=== PATIENT | male | born 1935 ===

== ENCOUNTER 2018-12-27 06:47 | Inpatient (IN) | payer MEDICARE, BC ==
[2018-12-27] VITALS (13 sets, daily range): BP systolic 123–163; BP diastolic 52–70
[~2018-12-27] VITALS: Ht 172.7 cm; Wt 83.9 kg
[2018-12-27] MEDS ORDERED: ceFAZolin sod 1 GM in NS 55 ML IVPB ONE (07:00)
[2018-12-27] MEDS ORDERED: FLOMAX0.4 MG ORAL (07:31)
[2018-12-27] MEDS ORDERED: METFORMIN HCL500 M1 ORAL (07:32)
[2018-12-27] MEDS ORDERED: BP MED PO (07:43)
--- NOTE | 2018-12-27 08:34 | Anethesia Preoperative Eval ---
Anesthesia Pre-op PMH/ROS General Date of Evaluation: Dec 27, 2018 Time of Evaluation: 08:33 Anesthesiologist: Lacey Valera CRNA ASA Score: ASA 3 Mallampati Score Class I : Soft palate, uvula, fauces, pillars visible Class II: Soft palate, uvula, fauces visible Class III: Soft palate, base of uvula visible Class IV: Only hard plate visible Mallampati Classification: Class II Surgeon: Zeeshan Diagnosis: BPH Surgical Procedure: TURP Anesthesia History: none Family History: no anesthesia problems Allergies: Coded Allergies: No Known Allergies (Unverified , 12/27/18) Medications: see eMAR Patient NPO?: No NPO Date: Dec 26, 2018 NPO Time: 1999 Past Medical History Cardiovascular: Reports: HTN; Denies: CAD, SD, valve dz, arrhythmia, other Pulmonary: Denies: asthma, COPD, DAYANA, other Gastrointestinal/Genitourinary: Reports: GERD, other - BPH; Denies: CRI, ESRD Neurologic/Psychiatric: Denies: dementia, CVA, depression/anxiety, TIA, other Endocrine: Reports: DM; Denies: hypothyroidism, steroids, other HEENT: Denies: cataract (L), cataract (R), glaucoma, PAIMIUT (L), PAIMIUT (R), other Hematology/Immune: Denies: anemia, DVT, bleeding disorder, other Musculoskeletal/Integumentary: Denies: OA, RA, DJD, DDD, edema, other PMH Narrative: as noted above PSxH Narrative: see H & P Anesthesia Pre-op Phys. Exam Physician Exam Last Vital Signs Date Time Temp Pulse Resp B/P (MAP) Pulse Ox O2 Delivery O2 Flow Rate FiO2 12/27/18 07:50 Room Air 12/27/18 07:29 97.9 70 18 156/69 (98) 97 Constitutional: NAD Cardiovascular: RRR Respiratory: CTA Gastrointestinal: S/NT/ND Airway Exam Mallampati Score: Class II MO: full ROM: full Teeth: intact Dentures: no upper, no lower Anesthesia Pre-op A/P Risk Assessment & Plan Assessment: ASA 3 ok to proceed Plan: GA Status Change Before Surgery: No Pre-Antibiotics Given Within 1 Hr of Incision: Lacey Florez CRNA Dec 27, 2018 08:34
[2018-12-27] MEDS ORDERED: NS Irrig 4000ml IRRIG ONE (09:30)
[2018-12-27] MEDS ORDERED: LR 1000ml ONE (09:30)
[2018-12-27] MEDS ORDERED: Succinylcholine 20mg/ml 10ml vial ONE (09:36)
[2018-12-27] MEDS ORDERED: cefOXitin 1gm Inj ONE (09:36)
[2018-12-27] MEDS ORDERED: fentaNYL 100 mcg/2 mL IV ONE (09:37)
[2018-12-27] MEDS ORDERED: Lidocaine 1% MPF 10mg/ml 5ml ONE (09:38)
[2018-12-27] MEDS ORDERED: Propofol 200mg/20ml IV ONE (09:38)
--- NOTE | 2018-12-27 09:38 | Pre-Procedure Note/Attestation ---
Pre-Procedure Note/Attestation Complete Prior to Procedure Planned Procedure: not applicable Procedure Narrative: TURP SP tube placement Attestation I attest that I discussed the nature of the procedure; its benefits; risks and complications; and alternatives (and the risks and benefits of such alternatives ), prior to the procedure, with the patient (or the patient's legal front desk representative). I attest that, if there was a reasonable possibility of needing a blood transfusion, the patient (or the patient's legal front desk representative) was given the [facility] standardized written summary, pursuant to the Ricardo Jewels Blood Safety Act ([place] Health and Safety Code # 1645, as amended). I attest that I re-evaluated the patient just prior to the surgery and that there has been no change in the patient's H&P, except as documented below: Mihai Byers MD Dec 27, 2018 09:38
[2018-12-27] MEDS ORDERED: Lidocaine 1% Plain 30 ml INJ ONE (09:43)
[2018-12-27] MEDS ORDERED: LR 1000ml 1,000 ML IVLG SCH (10:20)
--- NOTE | 2018-12-27 10:20 | Anethesia Preoperative Eval ---
Anesthesia Pre-op PMH/ROS General Date of Evaluation: Dec 27, 2018 Time of Evaluation: 09:42 Anesthesiologist: Arnav ASA Score: ASA 3 Mallampati Score Class I : Soft palate, uvula, fauces, pillars visible Class II: Soft palate, uvula, fauces visible Class III: Soft palate, base of uvula visible Class IV: Only hard plate visible Mallampati Classification: Class II Surgeon: Zeeshan Diagnosis: BPH Surgical Procedure: TURP, Anesthesia History: none Family History: no anesthesia problems Allergies: Coded Allergies: No Known Allergies (Unverified , 12/27/18) Medications: see eMAR Patient NPO?: Yes NPO Date: Dec 26, 2018 NPO Time: 1999 Past Medical History Cardiovascular: Reports: HTN; Denies: CAD, VA, valve dz, arrhythmia, other Pulmonary: Denies: asthma, COPD, DAYANA, other Gastrointestinal/Genitourinary: Reports: GERD, other - Urinary retention; Denies: CRI, ESRD Neurologic/Psychiatric: Reports: dementia; Denies: CVA, depression/anxiety, TIA, other Endocrine: Reports: DM; Denies: hypothyroidism, steroids, other HEENT: Reports: cataract (L); Denies: cataract (R), glaucoma, [place] L[place] (L), FOND [place] LAC (R), other Hematology/Immune: Reports: anemia - mild; Denies: DVT, bleeding disorder, other Musculoskeletal/Integumentary: Reports: DJD; Denies: OA, RA, DDD, edema, other PMH Narrative: as above PSxH Narrative: See H&P Anesthesia Pre-op Phys. Exam Physician Exam Last Vital Signs Date Time Temp Pulse Resp B/P (MAP) Pulse Ox O2 Delivery O2 Flow Rate FiO2 12/27/18 07:50 Room Air 12/27/18 07:29 97.9 70 18 156/69 (98) 97 Constitutional: NAD Neurologic: CN 2-12 intact Cardiovascular: RRR, no M/R/G Respiratory: CTA Gastrointestinal: S/NT/ND Airway Exam Mallampati Score: Class II MO: limited Neck: stiff ROM: limited Teeth: missing Dentures: upper, lower Mark José MD Dec 27, 2018 10:20
[2018-12-27] MEDS ORDERED: DiphenhydrAMINE 50mg/ml Inj IVP PRN (10:30)
[2018-12-27] MEDS ORDERED: Hydromorphone 0.5mg/0.5ml inj IVP PRN (10:30)
--- NOTE | 2018-12-27 11:21 | Brief Operative Note ---
Immediate Post Operative Note Operative Note Pre-op Diagnosis: BPH RETENTION Procedure: TURP SP tube placement Post-op Diagnosis: same Post-op Diagnosis: same as pre-op Surgeon: Giuseppe Byers Anesthesia: general Specimen: yes Complications: none Condition: stable Fluids: 500 Estimated Blood Loss: minimal Implant(s) used?: No Mihai Byers MD Dec 27, 2018 11:21
--- NOTE | 2018-12-27 11:45 | Immediate Post-Op Evaluation ---
Immediate Post-Op Evalulation Immediate Post-Op Evalulation Procedure: TURP Suprapubic catheter placement Date of Evaluation: Dec 27, 2018 Time of Evaluation: 11:04 IV Fluids: 700 Blood Products: none Estimated Blood Loss: n/a Urinary Output: n/a Blood Pressure Systolic: 126 Blood Pressure Diastolic: 72 Pulse Rate: 68 Respiratory Rate: 20 O2 Sat by Pulse Oximetry: 98 Temperature (Fahrenheit): 97.6 Pain Score (1-10): 1 Nausea: No Vomiting: No Complications none Patient Status: reacts, patent, none Hydration Status: adequate Mark José MD Dec 27, 2018 11:45
[2018-12-27 12:13] LABS: BASOPHILS % (AUTO) 0.9 % (0.0-2.0); EOSINOPHILS % (AUTO) 2.1 % (0.0-3.0); HEMATOCRIT 36.7 % (42.0-52.0); HEMOGLOBIN 12.7 G/DL (14.2-18.0); LYMPHOCYTES % (AUTO) 24.2 % (20.0-45.0); MEAN CORPUSCULAR VOLUME 85 FL (80-99); MONOCYTES % (AUTO) 7.3 % (1.0-10.0); NEUTROPHILS % (AUTO) 65.4 % (45.0-75.0); PLATELET COUNT 128 K/UL (150-450); RED BLOOD COUNT 4.34 M/UL (4.70-6.10); RED CELL DISTRIBUTION WIDTH 11.6 % (11.6-14.8); WHITE BLOOD COUNT 6.3 K/UL (4.8-10.8)
[2018-12-27 12:26] LABS: ANION GAP 10 mmol/L (5-15); BLOOD UREA NITROGEN 31 mg/dL (7-18); CALCIUM 8.1 MG/DL (8.5-10.1); CARBON DIOXIDE 23 MMOL/L (21-32); CHLORIDE 103 MMOL/L (98-107); CREATININE 1.8 MG/DL (0.55-1.30); POTASSIUM 4.6 MMOL/L (3.5-5.1); SODIUM 136 MMOL/L (136-145)
--- NOTE | 2018-12-27 12:50 | NUR ---
NURSE NOTES: Patient arrived on unit via hospital bed. Patient is awake and able to verbalize needs. Patient is stable and denies pain at this time. Breathing is even and unlabored, receiving 2L oxygen via nc. 3way craig catheter in place, draining and patent as ordered. Surgical site clean, dry, and intact. Suprapubic catheter in place, irrigating as ordered. Patient oriented to room, call light, and unit. Patient encouraged to use call light for assistance, verbalized understanding. Patient's son has all belongings. Upper dentures at bedside. Patient is in good spirits with call light within reach. All safety measures provided. Will continue to monitor.
[2018-12-27] MEDS ORDERED: HYDROcodone/Acetamin 5/325 tab ORAL PRN (13:12)
[2018-12-27] MEDS: D5 1/2NS w/KCl 20mEq 1,000 ML IV SCH (14:42)
[2018-12-27] MEDS: HYDROmorphone 1mg/ml Carpuject IVP PRN ×2 (14:49→21:40)
[2018-12-27] MEDS: NovoLOG Insulin Flexpen SUBQ SCH ×2 (17:36→21:40)
[2018-12-27] MEDS: ceFAZolin sod 1 GM in D5W 55 ML IV SCH (17:38)
[2018-12-27] MEDS: Docusate 100mg cap ORAL SCH (18:11)
[2018-12-27] MEDS: metFORMIN 500mg tab ORAL SCH (18:11)
--- NOTE | 2018-12-27 19:30 | NUR ---
HAND-OFF: Report given to Christopher ALCARAZ. Patient is stable.
--- NOTE | 2018-12-27 19:35 | NUR ---
NURSE NOTES: Report taken from LISSA Westbrook. Patient is awake and bedbound, A&Ox4. Shows no signs of distress on room air, O2 order for <95%. Is having pain in his abdominal area near surgical wound, 03/28. Surgical site c/d/i. Patient has CBI, fluid running into abdominal area and draining from craig. Currently flowing bright red fluid, minor clots, continue to monitor UO. Craig site clean and intact. Patient skin intact, some dryness noted on bilateral feet, continue to monitor. Dentures at bedside. Side rails up x3, bed in lowest position, call light within reach.
--- NOTE | 2018-12-27 23:55 | NUR ---
NURSE NOTES: Urine color has changed from bright red to pale red. Continue to monitor.
[2018-12-28] VITALS: BP 112/49
[2018-12-28] MEDS: ceFAZolin sod 1 GM in D5W 55 ML IV SCH (00:21)
[2018-12-28] MEDS: D5 1/2NS w/KCl 20mEq 1,000 ML IV SCH ×2 (00:22→10:30)
[2018-12-28 04:00] VITALS: BP 127/53
[2018-12-28] MEDS: NovoLOG Insulin Flexpen SUBQ SCH ×2 (06:18→11:29)
[2018-12-28 06:54] LABS: BASOPHILS % (AUTO) 0.6 % (0.0-2.0); HEMATOCRIT 35.7 % (42.0-52.0); HEMOGLOBIN 12.3 G/DL (14.2-18.0); LYMPHOCYTES % (AUTO) 23.6 % (20.0-45.0); MEAN CORPUSCULAR VOLUME 86 FL (80-99); MONOCYTES % (AUTO) 9.3 % (1.0-10.0); NEUTROPHILS % (AUTO) 63.4 % (45.0-75.0); PLATELET COUNT 140 K/UL (150-450); RED BLOOD COUNT 4.16 M/UL (4.70-6.10); RED CELL DISTRIBUTION WIDTH 11.6 % (11.6-14.8); WHITE BLOOD COUNT 9.9 K/UL (4.8-10.8)
[2018-12-28 07:04] LABS: ANION GAP 7 mmol/L (5-15); BLOOD UREA NITROGEN 24 mg/dL (7-18); CARBON DIOXIDE 25 MMOL/L (21-32); CHLORIDE 104 MMOL/L (98-107); CREATININE 1.5 MG/DL (0.55-1.30); POTASSIUM 4.4 MMOL/L (3.5-5.1); SODIUM 136 MMOL/L (136-145)
--- NOTE | 2018-12-28 07:30 | NUR ---
NURSE NOTES: WALKING ROUNDS DONE WITH OUTGOING RN. PATIENT AWAKE IN BED. QUESTIONS ANSWERED NEEDS MET AT THIS TIME. CBI GOING AND PATENT CATHETER SECURED TO THIGH. OUTPUT CLEAR W/O CLOTS PRESENT . DISCUSSED PLAN OF CARE FOR THE WITH PT; VERBALIZED UNDERSTANDING. CALL LIGHT WITHIN REACH. BED IN LOW AND LOCKED POSITION.
--- NOTE | 2018-12-28 07:30 | NUR ---
NURSE NOTES: WALKING ROUNDS DONE WITH OUTGOING RN
--- NOTE | 2018-12-28 07:42 | NUR ---
HAND-OFF: Report given to LISSA Shaw. Patient awake and stable in bed. Hung new saline solution for CBI. Urine output pale pink. Total UO: (Out)18392he - (in)9000cc = 2200cc total
[2018-12-28 08:00] VITALS: BP 139/58
--- NOTE | 2018-12-28 08:27 | NUR ---
CASE MANAGEMENT:REVIEW 12/27/18 83 YR OLD MALE HERE FOR ELECTIVE SURGERY SI: BPH 97.9 70 18 156/69 97% ON RA H/H-12.7/36.7 PLT-128 BUN+31 CR+1.8 IS: TO SURGERY: TURP SP TUBE PLACEMENT IV ANCEF Q8HRS : TO MED/SURG 3 EAST INTERQUAL CRITERIA MET
[2018-12-28] MEDS: Docusate 100mg cap ORAL SCH (08:31)
[2018-12-28] MEDS: metFORMIN 500mg tab ORAL SCH (08:31)
[2018-12-28] MEDS: HYDROmorphone 1mg/ml Carpuject IVP PRN ×2 (08:32→11:47)
[2018-12-28] MEDS ORDERED: Tamsulosin 0.4mg cap ORAL SCH (09:00)
--- NOTE | 2018-12-28 09:05 | NUR ---
PT EVALUATION NOTE Patient seen for initial evaluation, see complete evaluation for details. Patient presents with impaired balance and functional mobility due to pain. Patient will benefit from skilled inpatient PT intervention to address strength, balance, safety and mobility to return to prior level of function. Anticipate discharge home with family assistance as needed once medically cleared by MD. No DME needs anticipated at this time.
[2018-12-28 12:00] VITALS: BP 140/60
[2018-12-28] MEDS ORDERED: LEVAQUIN500 MG ORAL (12:09)
[2018-12-28] MEDS ORDERED: NORCO 5-325 TA1 EACH ORAL (12:10)
[2018-12-28] MEDS ORDERED: COLACE100 MG ORAL (12:10)
--- NOTE | 2018-12-28 12:30 | NUR ---
NURSE NOTES: PATIENT SEEN BY SURGEON CATRACHITA Byrne CBI DC'D BY . PATIENT READY FOR DISCHARGE. SON AT BEDSIDE. INSTRUCTED ON HOW TO DRAIN SUPRAPUBIC CATHETER AT HOME. RETURN DEMONSTRATION VERY GOOD. PATIENT AMBULATED OUT OF ROOM WITH P.T. TODAY. TOLERATED FAIR. DISCHARGE INSTRUCTIONS GIVEN WITH PATIENT EDUCATION AND RX GIVEN. VERBALIZED UNDERSTANDING. ALL BELONGINGS WITH PATIENT.
[2018-12-28] MEDS ORDERED: NS Irrig 4000ml IRRIG ONE (13:14)
[2018-12-28] MEDS ORDERED: NS Irrig 1000ml ONE (13:14)
[2018-12-28 14:38] VITALS: BP 142/75
--- NOTE | 2018-12-28 14:38 | 48 Hour Post Anesthesia Eval ---
Post Anesthesia Evaluation Procedure: TURP Suprapubic catheter placement Date of Evaluation: Dec 28, 2018 Time of Evaluation: 14:36 Blood Pressure Systolic: 142 0: 75 Pulse Rate: 64 Respiratory Rate: 16 Temperature (Fahrenheit): 97.5 O2 Sat by Pulse Oximetry: 96 Airway: patent Nausea: No Vomiting: No Pain Intensity: 3 Hydration Status: adequate Cardiopulmonary Status: stable Mental Status/LOC: patient returned to baseline Follow-up Care/Observations: n/a Post-Anesthesia Complications: none Follow-up care needed: N/A Mark José MD Dec 28, 2018 14:38
--- NOTE | 2018-12-28 19:15 | Consultation ---
DATE OF CONSULTATION: 12/28/2018 INTERNAL MEDICINE CONSULTATION HISTORY OF PRESENT ILLNESS: This is an 83-year-old male, who has undergone surgery for prostatectomy. He is doing well postoperative day #1. Procedure was uncomplicated. PAST MEDICAL HISTORY: The patient has a previous history of hypertension, gastroesophageal reflux disease, and diabetes mellitus. PREVIOUS SURGERIES: The patient declines. HOME MEDICATIONS: Include metformin and Flomax. ALLERGIES: None reported. REVIEW OF SYSTEMS: Denies any headaches, hematemesis, melena, or hematochezia. PHYSICAL EXAMINATION: GENERAL: Reveals an 89-year-old male. HEENT: Unremarkable. LUNGS: Clear breath sounds bilaterally. ABDOMEN: Soft. EXTREMITIES: There is no edema. NEUROLOGIC: Nonfocal. IMPRESSION: Postoperative day #1 status post surgery for prostatectomy. DISCUSSION: The patient will be discharged home today. I will write a prescription for Levaquin and Colace. Resume home medications. Outpatient followup. Haja Stark M.D. DR: ROBYN JOB#: [id number] CC:
--- NOTE | 2018-12-30 19:00 | Operative Note - Dictated ---
DATE OF OPERATION: 12/27/2018 PREOPERATIVE DIAGNOSES: Left proximal ureteral stone, hydronephrosis, and abdominal pain. PREOPERATIVE DIAGNOSES: Left proximal ureteral stone, hydronephrosis, and abdominal pain. OPERATION: 1. Left retrograde pyelogram. 2. Semi-rigid ureteroscopy. 3. Double-J stent placement. OPERATED BY: Mihai Byers M.D. ANESTHESIA: General. FINDINGS: Stone in the proximal left ureter with swelling of the ureteral orifice on the left side. INDICATION FOR SURGERY: The patient was admitted through the ER. He was seen apparently in the emergency room with pain, nausea, and vomiting. He had mild renal insufficiency with elevation of creatinine to 1.3 and bloody urine. The patient was admitted for treatment and possible surgery. CT urogram was reviewed showing 5 to 6 mm stone in the proximal left ureter. I discussed with the patient and his all the treatment options and recommended that they have a stent placement. The patient understands all the nature of the procedure and signed a consent. DESCRIPTION OF PROCEDURE: The patient was brought to the operating room and placed in lithotomy position and prepped and draped in a standard fashion. Under general anesthesia, cystoscope was introduced into the bladder. The bladder was normal. The left ureter was edematous. Multiple attempts with a guidewire failed. Using a semi-rigid ureteroscope, the wire was navigated into the left ureter bypassing the pole of the ureter . After multiple attempts to perform ureteroscopy, I was unable to advance the scope beyond the edema in the left ureter. Decision was made to terminate the procedure with the placement of double-J stent. double-J stent was placed and left indwelling with the Li catheter. The patient tolerated the procedure well. He will come back to my office to potentially remove . Mihai Byers M.D. DR: SULAIMAN JOB#: [id number] CC:
--- NOTE | 2019-01-01 07:29 | Discharge Summary ---
Discharge Summary Discharge Summary _ DATE OF ADMISSION: 12/27/2018 DATE OF DISCHARGE: 12/28/2018 DISCHARGED BY: Dr. Mihai Byers CONSULTANTS: Dr. Glen tSark BRIEF HOSPITAL COURSE: Patient is an 83-year-old male, who has history of BPH and urinary retention, who was diagnosed with left proximal ureteral stone, with hydronephrosis and abdominal pain. Patient was admitted on 12/27/2018 and underwent left retrograde pyelogram, with ureteroscopy and double-J stent placement. Left ureter was edematous. He tolerated procedure well. Procedure was uncomplicated. Following day, he was cleared for discharge home. Dressing to the suprapubic catheter was changed. Patient to resume home meds and to follow-up as outpatient. PREOPERATIVE DIAGNOSES: Left proximal ureteral stone, hydronephrosis, and abdominal pain. PREOPERATIVE DIAGNOSES: Left proximal ureteral stone, hydronephrosis, and abdominal pain. OPERATION: 1. Left retrograde pyelogram. 2. Semi-rigid ureteroscopy. 3. Double-J stent placement. DISPOSITION: Patient was discharged home. DISCHARGE MEDICATIONS: Refer to Discharge Medication List. DISCHARGE INSTRUCTIONS: Follow-up in a week. I have been assigned to complete a discharge summary on this account, I was not involved with the patient's management. Corry Hanley NP Jan 01, 2019 07:29
== END 2018-12-28 13:15 | disposition home or self-care (01) | DRG 661 ==
LOC: SDSOVERFLO 06:47 → 3E 12:50
PROC: BT1FZZZ Fluoroscopy of Left Kidney, Ureter and Bladder (ICD-10-PCS; principal; 2018-12-27 10:15)
PROC: 0T778DZ Dilation of Left Ureter with Intraluminal Device, Via Natural or Artificial Opening Endoscopic (ICD-10-PCS; principal; 2018-12-27 10:15)
DX: N13.2 Hydronephrosis with renal and ureteral calculous obstruction (principal); N40.1 Benign prostatic hyperplasia with lower urinary tract symptoms; R33.8 Other retention of urine; I10 Essential (primary) hypertension; K21.9 Gastro-esophageal reflux disease without esophagitis; E11.9 Type 2 diabetes mellitus without complications; Z79.84 Long term (current) use of oral hypoglycemic drugs
CPT/HCPCS: 36415; 80048; 82962; 85025; 86850; 86900; 86901; 87081; 94003; 94150; J1815; J2405